=== PATIENT | male | born 1995 | race Caucasian/White ===

== ENCOUNTER 2018-10-28 00:03 | Emergency (ER) | payer SELFPAY ==
[2018-10-28] MEDS ORDERED: Gentamicin 80 MG/2 ML VIAL ONE (01:13)
[2018-10-28] MEDS ORDERED: Azithromycin 250 MG TAB ONE ×2 (01:13→01:16)
[2018-10-28 01:17] LABS: Bacteria/HPF None Seen HPF (None Seen); Bilirubin Negative (Negative); Blood, Urine Negative (Negative); Clarity Extra Turbid (Clear); Glucose, Urine (Dipstick) Normal (Negative); Leukocyte 500 Leu/uL (Negative); Nitrite Negative (Negative); Protein, Urine (Dipstick) 100 mg/dL (Neg-Trace); Squamous Epithelial None Seen HPF (0-3); Urobilinogen Normal mg/dL (Less than 2); WBC/HPF Greater than 50 HPF (0-3)
[2018-10-28 01:19] LABS: RBC/HPF None Seen HPF (0-3)
[2018-10-31 00:37] LABS: Chlam.trachomatis by PCR,Urine Inconclusive (NotDetected)
== END 2018-10-28 02:18 | disposition home or self-care (01) ==
LOC: ERS 00:03
DX: N34.2 Other urethritis (principal); F41.9 Anxiety disorder, unspecified; J45.909 Unspecified asthma, uncomplicated; F17.210 Nicotine dependence, cigarettes, uncomplicated; Z79.51 Long term (current) use of inhaled steroids
CPT/HCPCS: 81003; 81015; 87086; 87491; 87591; 96372; 99283; J1580

== ENCOUNTER 2019-04-05 19:22 | Emergency (ER) | payer SELFPAY | END 2019-04-05 19:55 | disposition home or self-care (01) | LOC: ERS 19:22 | DX: S39.011A Strain of muscle, fascia and tendon of abdomen, initial encounter (principal); J45.909 Unspecified asthma, uncomplicated; F41.9 Anxiety disorder, unspecified; F17.210 Nicotine dependence, cigarettes, uncomplicated; X58.XXXA Exposure to other specified factors, initial encounter | CPT/HCPCS: 99281 ==